=== PATIENT | female | born 1955 | race Caucasian/White ===

== ENCOUNTER 2019-03-10 21:54 | Observation (INO) | payer MEDICARE ==
[~2019-03-10] VITALS: Ht 165.1 cm; Wt 103.6 kg
--- NOTE | ~2019-03-10 | HEMODYNAMI ---
PATIENT:HUGO PORTER MEDICAL RECORD: [id number] : 51 LOCATION:[facility] ADMISSION DATE: 03/10/19 Generatedon:03/11/201915:55 Patient name: HUGO PORTER Patient #: [id number] SSN: D OB: 1955 Date of study: 03/11/2019 Page: Of Hemodynamic Procedure Report Patient Data Patient Demographics Procedure consent was obtained First Name: HUGO Gender: Female Last Name: GERMAN : 1955 [facility] Initial: YOUNG Age: 63 year(s) Patient #: [id number] Race: Unknown Additional ID: [id number] Contact details [address]: [address] [place] [address] State: [place] City: [place] Zip code: [address] Past Medical History Allergies Allergen Reaction Date Comments Reported Other allergy 03/11/2019 PERCOCET Admission Admission Data Admission Date: 03/10/2019 Admission Time: 22:55 Room #: [facility] Insurance Payor: Medicare [facility] #: [id number] Height (in.): 64.96 BSA: 2.1 (m2) Height (cm.): 165 BMI: 38.2 (kg/m2) Weight (lbs.): 229.28 Weight (kg.): 104 Lab Results Lab Result Date: 03/11/2019 Lab Result Time: 0:00 Biochemistry Name Units Result Min Max BUN mg/dl 24 --(----)-* 7 18 Creatinine mg/dl 0.8 --(-*--)-- 0.6 1.3 eGFR ml/min 76.19240 *-(----)-- 90 120 NONAFRICAN CBC Name Units Result Min Max Hematocrit % 38.8 *-(----)-- 42 54 Hemoglobin g/dl 13.3 -*(----)-- 13.5 17.5 Procedure Procedure Types Cath Procedure Diagnostic Procedure LHC [facility] w/Coronaries Sedation Charges Moderate Sedation up to 15 minutes PCI Procedure Coronary Stent Coronary Stent Initial Peripheral Cath Diagnostic Procedure Abd/Extremity Renal Bilat Renal Arteriogram Procedure Description Procedure Date Procedure Date: 03/11/2019 Procedure Start Time: 15:30 Procedure End Time: 15:53 Procedure Staff Name Function Wander Cruz MD Performing Physician Charisse Amezquita RT Scrub Shiva Rizvi RT Monitor Kathy Dawson RN Nurse Camilo Barba RN Rat Culturist Procedure Data Cath Procedure Fluoroscopy Diagnostic fluoroscopy Total fluoroscopy Time: 4 time: 4 min min Diagnostic fluoroscopy Total fluoroscopy dose: dose: 1187 mGy 1187 mGy Contrast Material Contrast Material Type Amount (ml) Isovue 300 130 Entry Location Entry Primary Successful Side Size Upsize Upsize Entry Closure Succes sful Closure Location (Fr) 1 (Fr) 2 (Fr) Remarks Device Remarks Femoral Right 5 Fr 6 Fr Exoseal artery Short Estimated blood loss: 10 ml Diagnostic catheters Device Type Used For End Catheter Placement MULTIPACK JL 4.0 5Fr Procedure catheter MULTIPACK 3DRC 5Fr Procedure catheter MULTIPACK Pigtail 5 Fr Procedure catheter Procedure Complications No complications Procedure Medications Medication Administration Route Dosage 0.9% NaCl I.V. 100 ml/hr Oxygen etCO2 Nasal cannula 2 l/min Lidocaine 2% added to field 20 Heparin Flush Bag added to field 2 bags (1000units/500ml NS) Versed I.V. 1 mg Fentanyl I.V. 50 mcg Heparin Bolus I.V. 4000 units Versed I.V. 1 mg Fentanyl I.V. 50 mcg Versed I.V. 1 mg Plavix P.O. 75 mg Hemodynamics Rest BSA: 2.1 (m2) HGB: 13.3 (g/dl) O2 Consumption: Estimated: 190.51 (ml/min) O2 Con sumption indexed: Estimated:90.72 (ml/min/m) Heart Rate: 63 (bpm) Pressure Samples Time Site Value (mmHg) Purpose Heart Use Rate(bpm) 15:37 LV 141/24,31 Snapshot 66 15:37 AO 166/81(120) Pullback 61 Gradients Valve Time Site Site 2 Mean SEP/DFP Peak To Heart Use 1 (mmHg) (sec/min) Peak Rate (mmHg) (bpm) Aortic 15:37 LV AO 61 166/81(120) Snapshots Pre Cath Intra NCS Post Cath Vital Signs Time Heart Resp SPO2 etCO2 NIBP (mmHg) Rhythm Pain Sedation Rate (ipm) (%) (mmHg) Status Level (bpm) 15:09:41 62 17 95 39.1 No Cuff NSR 0 (11) 10(A) , No pain 15:12:35 62 18 99 38.3 175/95(150) NSR 0 (11) 10(A) , No pain 15:18:05 61 14 99 51.1 173/95(124) NSR 0 (11) 10(A) , No pain 15:22:29 62 17 96 0 146/91(135) NSR 0 (11) 10(A) , No pain 15:26:49 60 18 95 13.5 154/87(116) NSR 0 (11) 10(A) , No pain 15:34:21 65 16 95 24 142/78(110) NSR 0 (11) 9(A) , No pain 15:38:39 68 15 96 46.5 157/93(130) NSR 0 (11) 9(A) , No pain 15:43:04 65 15 94 51.8 149/87(112) NSR 0 (11) 9(A) , No pain 15:47:22 68 14 92 60 159/97(131) NSR 0 (11) 9(A) , No pain 15:51:44 64 16 93 57 157/88(120) NSR 0 (11) 10(A) , No pain Medications Time Medication Route Dose Verified Delivered Reason Notes Effectiveness by by 15:09:03 0.9% NaCl I.V. 100 Wander Kathy used for ml/hr Nancy Samir procedure MD TRUJILLO 15:09:09 Oxygen etCO2 2 Wander Kathy used for Nasal l/min Nancy Samir procedure cannula MD TRUJILLO 15:09:16 Lidocaine 2% added 20ml Wander Viramontes for local to vial [facility] anesthetic field MD URBAN 15:09:21 Heparin Flush added 2 Wander Viramontes [facility] ([facility]/500ml field MD URBAN NS) 15:27:23 Versed I.V. 1 mg Wander Page for sedation St Edmundo Barba RN, MD 15:27:29 Fentanyl I.V. 50 Wander Page for sedation mcg St Edmundo Barba RN, MD 15:31:38 Versed I.V. 1 mg Wander Page for sedation St Edmundo Barba RN, MD 15:31:41 Fentanyl I.V. 50 Wander Page for sedation mcg St Edmundo Barba RN, MD 15:40:19 Heparin Bolus I.V. 4000 Wander Page for verif ied units St Edmudno Barba RN anticoagulation with dr MD carvalho 15:43:02 Versed I.V. 1 mg Wander Page for sedation St Edmundo Barba RN, MD 15:54:38 Plavix P.O. 75 mg W[address] Page for [facility] Edmundo Barba RN antiplatelet MD therapy Procedure Log Time Note 14:52:53 Signed procedure consent form obtained from patient. 14:52:55 Procedure Status Urgent Heart Cath (IP). 14:52:57 Time tracking: Regular hours (M-F 7:00 - 5:00) 14:53:00 Plan of Care:Hemodynamics will remain stable., Cardiac rhythm will remain stable., Comfort level will be maintained., Respiratory function will remain adequate., Patient/ family verbilizes understanding of procedure., Procedure tolerated without complication., Recovers from procedure without complications.. 14:53:07 Kathy Dawson RN sent for patient. Start room use. 14:54:13 H&P Date Dictated: 03/10/2019 Within 30 days and on chart.. 14:54:58 Patient Weight : 229.28 lbs 14:55:02 Patient Height : 64.96 inches 14:56:22 Insurance Payor : Medicare 15:00:32 Patient received from Med II to CCL 2 Alert and oriented. Tansferred to table in Supine position. 15:00:33 Warm blankets applied, and akbar hugger turned on for patient comfort. 15:00:34 Correct patient and procedure confirmed by team. 15:00:35 ECG and BP/O2 sat monitors applied to patient. 15:08:51 Vital chart was started 15:09:03 0.9% NaCl 100 ml/hr I.V. was administered by Kathy Dawson RN; used for procedure; 15:09:09 Oxygen 2 l/min etCO2 Nasal cannula was administered by Kathy Dawson RN; used for procedure; 15:09:16 Lidocaine 2% 20ml vial added to field was administered by Wander Cruz MD; for local anesthetic; 15:09:21 Heparin Flush Bag (1000units/500ml NS) 2 bags added to field was administered by Wander Cruz MD; used for procedure; 15:09:45 Baseline sample Acquired. 15:09:48 Rhythm: sinus rhythm 15:09:49 Full Disclosure recording started 15:09:49 Pre-procedure instructions explained to patient. 15:09:50 Pre-op teaching completed and patient verbalized understanding. 15:09:52 Family in patients room. 15:09:53 Patient NPO since Midnight. 15:10:04 Patient allergic to Other allergyPERCOCET 15:10:07 Is patient on blood thinner?No 15:10:09 Patient diabetic? No. 15:10:12 Patient not . Patient is over age 55. 15:10:17 Previous problem with sedation/anesthesia? No ? 15:10:20 Snore? Yes 15:10:21 Sleep apnea? No 15:10:22 Deviated septum? No 15:10:23 Opens mouth fully? Yes 15:10:24 Sticks out tongue? Yes 15:10:28 Airway obstruction? Yes COPD 15:10:37 Dentures? No ? 15:10:40 Pre procedure: right dorsailis pedis pulse 1+ Palpable, but thready & weak; easily obliterated 15:10:44 IV patent on arrival in right forearm with 0.9% NaCl at [facility]. 15:11:17 Lab Result : BUN 24 mg/dl 15:11:17 Lab Result : Creatinine 0.8 mg/dl 15:11:17 Lab Result : eGFR NONAFRICAN 76.20091 ml/min 15:11:17 Lab Result : Hemoglobin 13.3 g/dl 15:11:17 Lab Result : Hematocrit 38.8 % 15:11:19 Lab results completed and on chart. 15:11:22 Right groin area was prepped with chlora-prep and draped in sterile fashion 15:11:23 Alarms reviewed by R. N. 15:11:23 Sharps counted by scrub and verified by R.N. 15:11:26 Use device set Femoral Dx 15:11:27 ACIST Syringe (89173) opened to sterile field. 15:11:28 Bag Decanter (2002) opened to sterile field. 15:11:29 ACIST Hand Control (13872) opened to sterile field. 15:11:29 ACIST Manifold (21117) opened to sterile field. 15:11:30 Tegaderm 4 x 4 (1626W) opened to sterile field. 15:11:32 Medline Cath Pack ([id number]) opened to sterile field. 15:11:33 DIAGNOSTIC Multipack 5Fr catheter set (LF3615) opened to sterile field. 15:11:34 SHEATH 5FR [place] (RBY075) opened to sterile field. 15:11:34 EMERALD Guide Wire (142-561) opened to sterile field. 15:: Physician arrived 15:: --------ALL STOP TIME OUT------ :: Final Timeout: patient, procedure, and site verified with staff and physician. All members of the team are in agreement. 15:: Right groin site verified by team. 15:26:12 Fire Safety Assessment: A--An alcohol-based skin anteseptic being used preoperatively., C--Open oxygen or nitrous oxide is being used., D--An ESU, laser, or fiber-optic light is being used. 15::15 Physical assessment completed. ASA score P 2 - A patient with mild systemic disease as per Wander Cruz MD. 15:26:23 2) 60-89 Mildly reduced kidney function, and other findings (as for stage 1) point to kidney disease. 15:26:57 Maximum allowable contrast dose (3.7 X eGFR X 0.75)210 ml. 15:27:00 Sedation plan: IV Moderate Sedation Medication:Versed, Fentanyl 15:27:23 Versed 1 mg I.V. was administered by Camilo Barba RN; for sedation; 15::29 Fentanyl 50 mcg I.V. was administered by Camilo Barba RN; for sedation; 15:30:14 Zero performed for pressure channel P1 15:30:36 Procedure started. 15:30:39 Local anesthetic to right femoral artery with Lidocaine 2% by Wander Cruz MD.INITIAL ACCESS ONLY 15:30:48 A 5 Fr sheath was inserted into the Right Femoral artery 15:31:37 A MULTIPACK JL 4.0 5Fr catheter was advanced over the wire and used for Procedure. 15:31:38 Versed 1 mg I.V. was administered by Camilo Barba RN; for sedation; 15::41 Fentanyl 50 mcg I.V. was administered by Camilo Barba RN; for sedation; 15:32:25 LCA angiography performed. 15:33:07 Catheter exchanged over wire. 15:33:12 A MULTIPACK 3DRC 5Fr catheter was advanced over the wire and used for Procedure. 15:34:00 RCA angiography performed. 15:34:52 Right renal angiography performed. 15:35:39 Left renal angiography performed. 15:35:46 Catheter exchanged over wire. 15:36:39 A MULTIPACK Pigtail 5 Fr catheter was advanced over the wire and used for Procedure. 15:37:04 LV gram done using LIU 15:37:06 Injector settings: Ml/sec: 10, Volume: 20, 15:37:08 LV hemodynamics recorded. 15:37:14 EF : 55 % 15:37:15 Catheter removed. 15:38:34 WHISPER 300cm guide wire ([id number]) opened to sterile field. 15:38:34 INFLATOR Merit BasixCompak (BR8861) opened to sterile field. 15:38:35 SHEATH 6FR [place] (ERO046) opened to sterile field. 15:38:51 Sheath upsized to a 6 Fr Short. 15:39:30 GUIDE 6FR XBLAD 3.5 catheter ([id number]) opened to sterile field. 15:39:42 6 Fr XBLAD 3.5 guide catheter was inserted over the wire 15:39:51 WHISPER wire advanced. 15:40:19 Heparin Bolus 4000 units I.V. was administered by Camilo Barba RN; for anticoagulation; verified with dr carvalho 15:42:02 Wire advanced across lesion. 15:43:02 Versed 1 mg I.V. was administered by Camilo Barba RN; for sedation; 15:45:11 ACT drawn and resulted at 209 seconds. (normal therapeutic range 180-240 seconds). 15:45:39 Pre PCI Site: [place] pLAD has 80% stenosis. 15:45:41 ACC Pre-intervention MILDRED Flow is 3. 15:46:44 Place stent Inflation Number: 1 A COBRA RX 3.0 X 08 Stent was prepped and advanced across the Prox LAD . The stent was deployed at 12 BRITNEY for 0:30 (min:sec) . 15:47:25 Inflation number: 2 The stent balloon was then re-inflated across the Prox LAD to 16 BRITNEY for 0:45 (min:sec) . 15:49:00 ACC Post-intervention MILDRED Flow is 3. 15:49:08 Post PCI Site: [place] pLAD has 0% stenosis. 15:49:17 ACC Post-intervention MILDRED Flow is 3. 15:49:24 Stent catheter was removed intact over wire. 15:49:29 Wire removed. 15:49:30 Guide catheter removed. 15:50:04 EXOSEAL 6Fr (EX600) opened to sterile field. 15:50:18 Sheath removed intact; hemostasis achieved with Exoseal to the Right Femoral artery. 15:50:20 Procedure ended.(Physican Out) 15:50:27 Fluoroscopy time 04.00 minutes. 15:50:31 Flurop Dose total: 1187 15:50:31 Fluoroscopy dose: 1187 mGy 15:50:37 Dose Area Product 61870 mGy/cm. 15:50:45 Contrast amount:Isovue 300 130ml. 15:50:47 Maximum allowable dose exceeded? No. 15:50:48 Sharps counted by scrub and verified by R.N. 15:50:49 Insertion/operative site no bleeding no hematoma. 15:50:51 Post-op/insertion site Right Femoral artery dressed using a 4 x 4 and Tegaderm. 15:50:54 Post right femoral artery:stable, soft, clean and dry 15:50:55 Post Procedure Pulses reassessed and unchanged 15:50:57 Post-procedure physical assessment completed. ASA score P 2 - A patient with mild systemic disease as per Wander Cruz MD. 15:50:59 Post procedure rhythm: unchanged. 15:51:06 Estimated blood loss: 10 ml 15:51:07 Post procedure instruction explained to patient.Patient verbalizes understanding. 15:51:08 Patient needs reinforcement of post procedure teaching. 15:51:37 Procedure type changed to Cath procedure, Diagnostic procedure, LHC, LHC w/Coronaries, Sedation Charges, Moderate Sedation up to 15 minutes, PCI procedure, Coronary Stent, Coronary Stent Initial, Peripheral Cath Diagnostic Procedure, Abd/Extremity, Renal, Bilat Renal Arteriogram 15:52:15 Procedure and supply charges have been captured, reviewed, submitted and are correct. 15:52:18 Procedure Complication : No complications 15:52:20 Vital chart was stopped 15:52:20 See physician's report for complete and final results. 15:52:22 Report given to PCU. 15:53:00 Patient transfered to PCU with Stretcher. 15:53:02 Procedure ended. 15:53:02 Full Disclosure recording stopped 15:53:25 ACC-PCI Only Patient was given prescriptions, or instructed by Wander Cruz MD to start/continue the following medications upon discharge: Aspirin, Plavix 15:53:27 End room use (Document Last) 15:54:38 Plavix 75 mg P.O. was administered by Camilo Barba RN; for antiplatelet therapy; Intervention Summary Intervention Notes Time ActionType Lesion and Equipment Action# Pressure Duration Attributes Used 15:46:44 Place stent Prox LAD COBRA RX 1 12 00:30 3.0 X 08 Stent 15:47:25 Reinflate Prox LAD COBRA RX 2 16 00:45 stent 3.0 X 08 balloon Stent Device Usage Item Name Manufacture Quantity Catalog Hospital Part Current Minimal Lot# / Number Charge Number Stock Stock Serial# Code ACIST Syringe Acist 1 16845 763724 539664 449973 20 (89588) Medical Systems Inc Bag Decanter Microtek 1 2002S 150512 40873 391271 5 (2002S) Medical Inc. ACIST Hand Acist 1 86737 513889 454241 479006 5 Control Medical (18443) Systems Inc ACIST Manifold Acist 1 92048 892021 181129 724155 5 (66822) Medical Systems Inc Tegaderm 4 x 4 3M 1 1626W 784505 592476 429883 5 (1626W) Medline Cath Medline 1 [id number] 780660 61306 124187 5 Pack ([id number]) DIAGNOSTIC Cardinal 1 TK6769 613997 04081 252426 30 Multipack 5Fr Health catheter set (EE1696) SHEATH 5FR Terumo 1 XBY191 478528 203650 705098 5 [place] (DPT500) EMERALD Guide Cardinal 1 502-455 089729 566335 275445 5 Wire (502-455) Health MULTIPACK JL Cardinal 1 412410 5 4.0 5Fr Health catheter MULTIPACK 3DRC Cardinal 1 328124 5 5Fr catheter Health MULTIPACK Cardinal 1 621031 5 Pigtail 5 Fr Health catheter WHISPER 300cm [place] 1 [id number] 757856 566173 457324 5 guide wire Vascular (8150785RG) INFLATOR Merit Merit 1 UW4330 195374 586909 083063 15 BasixComsumma health Medical (MZ9609) SHEATH 6FR Terumo 1 ILD183 965502 769666 037639 40 [place] (LSL960) GUIDE 6FR Cardinal 1 47069752 683433 168647 204992 10 XBLAD 3.5 Health catheter ([id number]) COBRA RX 3.0 X Celonova 1 345850 285255804 3693175 1 [id number] 08 stent Biosciences () EXOSEAL 6Fr Cardinal 1 EX600 076684 533073 207685 10 (EX600) Health Signature Audit [place] Stage Time Signature Unsigned Intra-Procedure 03/11/2019 Shiva Rizvi 3:55:38 PM RT(R) Signatures Performing Physician : Signature : Wander Cruz MD Date : Time : Monitor : Shiva Rizvi RT Signature : Date : Time : Nurse : Kathy Dawson RN Signature : Date : Time : [facility] [address] [place] [address]
[2019-03-10] MEDS ORDERED: CRESTOR5 MG PO (23:02)
[2019-03-10] MEDS ORDERED: CYCLOBENZAPRINE10 MG PO (23:03)
[2019-03-10] MEDS ORDERED: COZAAR50 MG PO (23:04)
[2019-03-10] MEDS ORDERED: MOBIC7.5 MG PO (23:05)
[2019-03-10] MEDS ORDERED: LOPRESSOR25 MG PO (23:06)
[2019-03-10] MEDS ORDERED: SINGULAIR10 MG PO (23:07)
[2019-03-10] MEDS ORDERED: NITROSTAT0.4 MG SL (23:07)
[2019-03-10] MEDS ORDERED: ZOLOFT100 MG PO (23:08)
--- NOTE | 2019-03-10 23:34 | NUR ---
PATIENT ARRIVED FROM [facility] VIA EMS. PATIENT IS ALERT AND ORIENTED. RESTING COMFORTABLY IN BED. RESPIRATIONS ARE EVEN AND UNLABORED. PATIENT ON 2L NC. IV IN L FA. CALL LIGHT WITHIN REACH. PATIENT ARRIVED TO UNIT WITH A HEPARIN DRIP. DR. GARAY. ORDERS GIVEN TO STOP HEPARIN DRIP. PLAVIX AND METOPROLOL. MORPHINE AND NITRO PRN FOR CP. NPO FOR POSSIBLE HEART CATH. PATIENT PLACED ON TELEMETRY. EKG OBTAINED DURING ADMISSION.
[2019-03-11] VITALS: BP 173/98
[2019-03-11 00:36] VITALS: BP 173/98; Ht 165.1 cm; Wt 103.6 kg
[2019-03-11 04:00] VITALS: BP 138/70
[2019-03-11 08:44] LABS: BASOPHILS 0.4 % (0-2); EOSINOPHILS 0.9 % (0-7); HEMATOCRIT 38.8 % (36.0-48.0); HEMOGLOBIN 13.3 g/dL (12-16); IMMATURE GRANULOCYTES 0.1 % (0-5); LYMPHOCYTES 49.4 % (15-50); MCH 31.4 pg (26.0-34.0); MCHC 34.3 g/dL (31.0-37.0); MCV 91.5 fL (80.0-100.0); MEAN PLATELET VOLUME 11.3 fL (7.4-10.4); MONOCYTES 9.2 % (2-11); PLATELET COUNT 188 10x3/uL (130-400); RBC 4.24 10x6/uL (4.00-5.40); RDW 12.1 % (11.5-14.5); WBC 8.1 10x3/uL (4.8-10.8)
[2019-03-11 08:47] LABS: CALC OSMOLALITY 289 mosm/kg (275-300); CARBON DIOXIDE 31.3 mmol/L (21.0-32.0); CHLORIDE - SERUM 106 mmol/L (98-107); CREATININE - SERUM 0.8 mg/dL (0.6-1.3); GLUCOSE 84 mg/dL (74-106); POTASSIUM - SERUM 3.8 mmol/L (3.5-5.1); SODIUM 144 mmol/L (136-145); UREA NITROGEN 24 mg/dL (7-18); eGFR NON AFRICAN AMERICAN 76 mL/min (90-120)
[2019-03-11 09:41] VITALS: BP 161/85
--- NOTE | 2019-03-11 09:44 | NUR ---
CONSENTS SIGNED FOR [facility]. WILL CONT. PLAN OF CARE.
[2019-03-11 12:08] VITALS: BP 137/70
--- NOTE | 2019-03-11 14:58 | NUR ---
PRE-OPS GIVEN. LEAVING FOR JAIL MANAGER BY BED.
--- NOTE | 2019-03-11 15:51 | HP ---
PATIENT: HUGO PORTER MEDICAL RECORD: [id number] ACCOUNT: [id number] LOCATION:[address] : [birth year] ADMISSION DATE: 03/10/19 PCP: No PCP HISTORY AND PHYSICAL EXAMINATION HISTORY OF PRESENT ILLNESS: A 63-year-old female with a history of hypertension, hyperlipidemia, strong family history of coronary artery disease, presented initially to [place] with onset of rest symptomology. Symptoms have been progressive over the past 2-3 weeks. She was then actually seen in the clinic, scheduled for treadmill stress testing as well as echocardiographic study, progressed rapidly to class IV symptomatology, also was noted to be quite hypertensive for the past months with greater than 3 antihypertensives and still not adequate blood pressure control. We are asked to see her concerning her cardiovascular status. PAST MEDICAL HISTORY: Includes: 1. History of hypertension. 2. Hyperlipidemia. 3. Reactive airway disease. MEDICATIONS: Typically include Flexeril 10 mg p.o. b.i.d., losartan 50 b.i.d., metoprolol 50 b.i.d., clonidine 0.1 t.i.d., Crestor 5 every day, Zoloft 100 every day, Singulair 10 q.h.s. ALLERGIES: PERCOCET. SOCIAL HISTORY: Nonsmoker, nondrinker, lives in the [place] area. Easily takes care of all ADLs. No set exercise program. REVIEW OF SYSTEMS: The patient reports easy bruising but reports no swollen glands. The patient reports no fever, no night sweats, no significant weight gain, no significant weight loss. No significant exercise tolerance. The patient reports no dry eyes, no irritation, no vision change. Patient reports no difficulty hearing and no ear pain. Patient reports no frequent nose bleeds or nose and sinus problems. Patient reports on arm pain on exertion. No shortness of breath while lying down. No history of heart murmur. Patient reports no cough, no wheezing or coughing up blood. Patient reports no abdominal pain, no vomiting. Normal appetite. No diarrhea and not vomiting blood. No nausea and no constipation. Patient reports no incontinence. No difficulty urinating. No hematuria. No increased frequency. Patient reports no muscle aches. No weakness, no arthralgias, no back pain. No swelling of the extremities. Patient reports no abnormal mole, no jaundice, no rashes. Reports no loss of consciousness. No weakness and no numbness. No seizures, dizziness, or headaches. The patient reports no depression, no sleep disturbance, feeling safe in a relationship and no alcohol abuse. Patient reports on fatigue. Reports no runny nose or sinus pressure. No itching, no hives, and no frequent sneezing. PHYSICAL EXAMINATION: GENERAL: Pleasant female in no acute distress. VITAL SIGNS: Blood pressure 138/70, pulse 61 and regular. HEENT: Normocephalic, atraumatic. NECK: No bruits noted. HEART: Regular, S4 gallop is noted. LUNGS: Good air excursion. HISTORY AND PHYSICAL [id number] PORTER,HUGO YOUNG ABDOMEN: Soft, nontender. EXTREMITIES: Pulses 2+ with no edema. NEUROLOGIC: Grossly intact. DIAGNOSTIC DATA: ECG shows nonspecific ST-T changes, inferolateral voltage for LVH. IMPRESSION: Acute coronary syndrome/class IV angina, difficult to control blood pressure on greater than 3 meds. At this point, plan for a cardiac catheterization, renal arteriography in the same setting. TRANSINT:[id number] Voice Confirmation ID: [id number] DOCUMENT ID: [id number] SANDRA ROMERO MD at 1551 CC: [id number] DICTATION DATE: 03/11/19812 TRUCK HOPPER: 03/11/19 1059 ADM IN [place] [id number] [place] [address]
--- NOTE | 2019-03-11 16:26 | NUR ---
BACK FROM FAN BLADE ALIGNER. VS WNL. RIGHT GROIN STABLE WITHOUT BLEEDING OR HEMATOMA NOTED. WILL MONITOR.
[2019-03-11 20:00] VITALS: BP 142/72
[2019-03-12] VITALS: BP 151/79
[2019-03-12 04:00] VITALS: BP 154/71
[2019-03-12] MEDS ORDERED: PLAVIX75 MG PO (08:10)
--- NOTE | 2019-03-12 08:14 | NUR ---
I TRIED TO CALL [facility] INTO [facility] IN [place] AND THE PHARMACY IS CLOSED UNTIL 9 AM.
--- NOTE | 2019-03-12 09:47 | NUR ---
IV AND TELEMETRY DCD. DC PLANS GIVEN. UNDERSTANDING VOICED.
--- NOTE | 2019-03-12 10:05 | NUR ---
ESCORTED TO CAR BY W/C.
--- NOTE | 2019-03-15 07:55 | MORECARE ---
CASE MANAGEMENT DISCHARGE SUMMARY PATIENT: HUGO PORTER UNIT: [id number] ADM DATE: 03/10/19 AGE: 63 : 51 SEX: F ROOM/BED: D.2116 AUTHOR: SAÚL MORALES PHYSICIAN: REFERRING PHYSICIAN: SANDRA ROMERO MD DATE OF SERVICE: 03/15/19 Discharge Plan Patient Name: HUGO PORTER [facility] [facility] 1955 Planned Disposition: Home Anticipated Discharge Date: 03/12/19 Discharge Date: 03/12/2019 Expected LOS: 2 Initial Reviewer: [email or web address] Initial Review Date: 03/15/2019 Generated: 03/15/19 8:55 am Patient Name: HUGO PORTER Page 19613 at 0755 All edits/amendments must be made on the electronic document DICTATION DATE: 03/15/19 0755 TAX COMPLIANCE MANAGER: ARMANDO 03/15/19 0755 RPT#: [id number] DC DATE:03/12/19 STATUS: DIS IN [facility] [address] [place] [address] END OF REPORT
--- NOTE | 2019-03-15 08:39 | OP ---
PATIENT NAME: HUGO PORTER MEDICAL RECORD: [id number] :51 LOCATION:D.M2 D.2116 ADMISSION DATE:03/10/19 SURGEON: SANDRA ROMERO MD DATE OF OPERATION: 03/11/2019 PROCEDURE: Left heart catheterization plus PTCA stent to the LAD plus renal arteriography, right femoral artery approach. CATHETERS: A 5-Japanese sheath, 5/4 left and right Ace, 5/4 pig. The procedure was well tolerated. The patient was returned to do. Sheath was removed. ExoSeal device was placed. FINDINGS: Left ventriculography in 30-degree LIU view: Normal wall motion and normal systolic function. CORONARY ANATOMY: LEFT MAIN: Left main is free of disease. LAD: Has discrete 80% stenosis after takeoff of the first diagonal. CIRCUMFLEX: Small vessel, free of disease. RIGHT CORONARY ARTERY: Dominant artery, gives rise to PDA, free of disease. IMPRESSION: Single-vessel disease, acute coronary syndrome plus intervention of vessel momentarily. DESCRIPTION OF PROCEDURE: A 5-Japanese sheath was exchanged for a 6-Japanese sheath, XB LAD guide catheter provided excellent guide catheter support followed by 300 cm Whisper wire placed across the tightly occluded LAD down this portion of the vessel. Stent deployed was a 3.0 x 8mm Cobra stent up to 14 atmospheres. Final angiography shows excellent resolution of an 80% stenosis, no significant residual. MILDRED flow was 3 throughout the procedure. The patient previously was loaded on Plavix. Heparin was used in the lab. Next, the right diagnostic catheter was drawn proximally after coronary angiography to the level of the renal arteries. 1. Right renal artery is smooth-walled vessel, free of disease. 2. The left renal artery is selective engaged, smooth-walled vessel, free of disease. IMPRESSION: No evidence of renovascular hypertension. TRANSINT:[id number] Voice Confirmation ID: [id number] DOCUMENT ID: [id number] SANDRA ROMERO MD at 0839 CC: [id number] DICTATION DATE: 03/11/19 1603 POLITICAL RESEARCH SCIENTIST: 03/11/19 2359 DIS IN 03/12/19 [facility] [address] [place] [address]
--- NOTE | 2019-04-06 14:23 | DS ---
PATIENT:HUGO PORTER :51 MEDICAL RECORD: [id number] DISCHARGE SUMMARY ADMISSION DATE: 03/10/19 DISCHARGE DATE: 03/12/19 DATE OF ADMISSION: 03/10/2019. DATE OF DISCHARGE: 03/12/2019. ADMITTING DIAGNOSES: 1. Acute coronary syndrome. 2. Hypertension. 3. Hyperlipidemia. BRIEF HISTORY AND HOSPITAL COURSE: A 63-year-old female transferred from [facility] with a history of acute coronary syndrome, was transferred here from [place] presented with rest symptomology, found to have single-vessel disease involving the LAD and underwent PTCA stenting without complication. Discharged home in good condition. MEDICATIONS: As per previous with addition of Plavix 75 every day. DIET: AHA diet. ACTIVITY: As tolerated. FOLLOWUP: In office in approximately 1 month. TRANSINT:[id number] Voice Confirmation ID: [id number] DOCUMENT ID: [id number] SANDRA ROMERO MD at 1423 CC: [id number] DICTATION DATE: 04/05/19 1302 CUSTOM TAILOR APPRENTICE: 04/06/19 0756 DIS IN 03/12/19 [id number] [place] [address]
== END 2019-03-12 10:05 | disposition home or self-care (01) ==
LOC: D.M2 21:54 → OBSVTIME 22:55 → D.M2 22:55
PROVIDERS: ADMIT Internal Medicine Interventional Cardiology; ATTEND Internal Medicine Interventional Cardiology
DX: I25.119 Atherosclerotic heart disease of native coronary artery with unspecified angina pectoris (principal); I24.9 Acute ischemic heart disease, unspecified; I10 Essential (primary) hypertension; E78.5 Hyperlipidemia, unspecified; J44.9 Chronic obstructive pulmonary disease, unspecified; Z87.891 Personal history of nicotine dependence